=== PATIENT | male | born 1950 | race Caucasian/White ===

== ENCOUNTER → 2022-11-08 | Outpatient (CLI) | payer MEDICARE, OTHER, SELFPAY ==
--- NOTE | 2022-11-08 13:03 | RAD_ITS ---
STUDY: X-RAY CHEST REASON FOR EXAM: Male, 72 years old. Cough. TECHNIQUE: Frontal and lateral views of the chest on 3 images. COMPARISON: None. FINDINGS: Low volume to the lung nguyễn with diffuse mild interstitial prominence. Regions of hyperlucency within both lung nguyễn which may represent emphysematous changes. Marked elevation of the left hemidiaphragm with atelectasis. Patchy opacity at the right base above the right hemidiaphragm. There is no demonstrated pleural abnormality. Cardiomegaly. Normal mediastinum and lauro. Normal visualized pulmonary arteries. Aortic tortuosity with calcification. Diffuse thoracic spondylosis. Normal visualized ribs, clavicles, and shoulders. There is no demonstrated abnormality of the visualized soft tissue structures of the upper abdomen. RAD/Chest PA and Lateral IMPRESSION: Cardiomegaly with chronic changes to both lung nguyễn. No acute abnormality. Electronically Signed: Germán Jacinto, at 10:09 EDT ,
== END | disposition home or self-care (01) ==
LOC: MTRAD 12:51
PROVIDERS: PCP Family Medicine; Referring Provider Internal Medicine Pulmonary Disease; Visit Provider Internal Medicine Pulmonary Disease
DX: R05.9 Cough, unspecified (principal)
CPT/HCPCS: 71046

== ENCOUNTER → 2022-11-23 | Outpatient (CLI) | payer MEDICARE, OTHER, SELFPAY ==
--- NOTE | 2022-11-23 06:35 | CT_ITS ---
INDICATION: Cough, previous Covid hospitalization EXAMINATION: CT CHEST WITHOUT CONTRAST TECHNIQUE: Helically acquired images were obtained of the chest. Sagittal and coronal reconstructions reviewed. A radiation dose optimization technique was used for this scan. IV Contrast dosage and agent: None. COMPARISON: Two-view chest x-ray from 11/08/2022 FINDINGS: LUNGS, PLEURA AND LARGE AIRWAYS: Large hiatal hernia present with entire stomach, surrounding intraperitoneal fat and mid to distal pancreas projecting into lower left hemithorax above level of diaphragm. Adjacent left basilar scarring and atelectasis. There is also moderate scarring within left upper lobe and mild scarring scattered throughout right lung. No discrete pulmonary mass. No pneumothorax or pleural effusion. THYROID: Unremarkable as visualized. HEART AND PERICARDIUM: Normal size heart, slightly displaced anteriorly secondary to large hiatal hernia. Coronary arterial calcifications present. No significant pericardial effusion. VESSELS: Atherosclerosis with no thoracic aortic aneurysm. MEDIASTINUM AND [place]: Very large hiatal hernia again noted, see above. No mediastinal mass. No pathologically enlarged mediastinal or hilar lymph nodes. UPPER ABDOMEN: Very large hiatal hernia with stomach and portion of pancreas projecting into left lower hemithorax. Noninflamed periampullary duodenal diverticulum noted. There are few punctate calcifications within liver, likely benign. Scattered colonic diverticula. BONES: Skeletal degenerative changes with no acute osseous abnormality. CT/Chest without Contrast IMPRESSION: 1. Very large hiatal hernia projecting into left lower hemithorax containing entire stomach, portion of pancreas, and surrounding herniated intraperitoneal fat. 2. Bilateral lung scarring with no acute pulmonary airspace disease. 3. Other nonurgent findings within body of report. Electronically Signed: Vik Morrison MD at 4:12 EDT ,
== END | disposition home or self-care (01) ==
LOC: CT 06:33
PROVIDERS: PCP Family Medicine; Referring Provider Internal Medicine Pulmonary Disease; Visit Provider Internal Medicine Pulmonary Disease
DX: I51.7 Cardiomegaly (principal); R05.9 Cough, unspecified; R91.8 Other nonspecific abnormal finding of lung field
CPT/HCPCS: 71250

== ENCOUNTER → 2024-03-21 | Outpatient (CLI) | payer MEDICARE, OTHER, SELFPAY ==
--- NOTE | 2024-03-21 08:50 | VDLE_ITS ---
Reason For Study: HX LLE DVT RIGHT LEFT CFV is compressible, spontaneous, phasic, GSV is normal. competent and demonstrates normal CFV is PARTIALLY COMPRESSIBLE w/ hyperechoic augmentation. web-like intraluminal echoes. Flow appears Procedure spontaneous, phasic, competent and This is a venous duplex using B-mode, color demonstrates normal augmentation.Finding is flow and spectral Doppler. consistent w/ CHRONIC DVT. Exam performed in department. FV is PARTIALLY COMPRESSIBLE w/ hyperechoic The exam was diagnostic. web-like intraluminal echoes. Flow appears spontaneous, phasic, competent and demonstrates normal augmentation. Finding is consistent w/ CHRONIC DVT POP V is PARTIALLY COMPRESSIBLE w/ hyperechoic web-like intraluminal echoes. Finding is consistent w/ CHRONIC DVT. Flow is phasic, and INCOMPETENT for greater than 1.0 second. T/P Trunk is PARTIALLY COMPRESSIBLE w/ hyperechoic web-like intraluminal echoes. Finding is consistent w/ CHRONIC DVT. PTV is compressible. LT PerV is compressible. VL/Venous Duplex US, Unilateral Interpretation Summary Chronic venous changes are noted in the left common femoral vein, femoral vein, popliteal vein, and tibio-peroneal trunk. These deep veins demonstrate hyperechoic web-like echoes. The left posterior tibial vein and peroneal vein are patent and compressible. The left common femo ral vein and femoral vein are competent. The left popliteal vein is incompetent. These findings sugg est a prior episode of left lower extremity deep vein thrombosis. The left great saphenous vein dangelo ears patent and compressible segmentally. The right common femoral vein is patent and compressi ble . Ordering Physician: Larry Sutton V Referring Physician: Michael Ray Performed By: Rich Reyes, RVT
== END | disposition home or self-care (01) ==
LOC: CVS 08:49
PROVIDERS: PCP Family Medicine; Referring Provider Internal Medicine Pulmonary Disease; Visit Provider Internal Medicine Pulmonary Disease
DX: M79.662 Pain in left lower leg (principal); R06.02 Shortness of breath; Z86.718 Personal history of other venous thrombosis and embolism
CPT/HCPCS: 93971

== ENCOUNTER → 2024-03-29 | Outpatient (CLI) | payer MEDICARE, OTHER, SELFPAY ==
[2024-03-31 07:07] LABS: HOMOCYSTEINE 14.8 umol/L (0.0-19.2)
[2024-04-11 15:09] LABS: Antithrombin 3 Function 95 % (75-135); Dilute Prothrombin Time (dPT) 42.5 sec (0.0-47.6); Dilute Russell Viper Venom 49.3 sec (0.0-47.0); Dilute Russell Viper Venom Mix 40.7 sec (0.0-40.4); Interpretation Comment: (.); PTT-LA 35.4 sec (0.0-43.5); Protein C Antigen 87 % (60-150); Protein C, Functional 88 % (73-180); Protein S, Free 116 % (61-136); Protein S, Funtional 106 % (63-140); Protein S, Total 97 % (60-150); Thrombin Time 18.2 sec (0.0-23.0); dPT Confirm Ratio 1.15 Ratio (0.00-1.34)
== END | disposition home or self-care (01) ==
PROVIDERS: PCP Family Medicine; Referring Provider Internal Medicine Pulmonary Disease; Visit Provider Internal Medicine Pulmonary Disease
DX: I82.402 Acute embolism and thrombosis of unspecified deep veins of left lower extremity (principal)
CPT/HCPCS: 36415; 81240; 81241; 83090; 85300; 85302; 85303; 85305; 85306; 85379; 86147

== ENCOUNTER → 2024-06-27 | Outpatient (CLI) | payer MEDICARE, OTHER, SELFPAY ==
--- NOTE | 2024-06-27 12:56 | VDLE_ITS ---
Reason For Study: DVT Left leg RIGHT LEFT CFV is compressible, spontaneous, phasic, GSV is normal. competent and demonstrates normal CFV is PARTIALLY COMPRESSIBLE w/ hyperechoic augmentation. web-like intraluminal echoes. Flow appears Procedure spontaneous, phasic, competent and This is a venous duplex using B-mode, color demonstrates normal augmentation.Finding is flow and spectral Doppler. consistent w/ CHRONIC DVT. Exam performed in department. FV is PARTIALLY COMPRESSIBLE w/ hyperechoic Compared to 03/21/2024. web-like intraluminal echoes. Flow appears A preliminary report was called and/or spontaneous, phasic, competent and faxed to Margi JOLLEY @ PCP Dr. Ray's office. demonstrates normal augmentation. Finding is Dr. Sutton's office closed. consistent w/ CHRONIC DVT POP V is Partially NONCOMPRESSIBLE with mixed echogenoicity noted within, consistent with Acute on Chronic DVT. Flow is phasic, and INCOMPETENT for greater than 1.0 second. T/P Trunk is PARTIALLY COMPRESSIBLE w/ hyperechoic web-like intraluminal echoes. Finding is consistent w/ CHRONIC DVT. PTV is compressible. LT PerV is compressible. VL/Venous Duplex US, Unilateral Interpretation Summary Acute deep vein thrombosis is noted in the left popliteal vein, as well as cement loader cayla venous changes. The left popliteal vein is incompetent. Chronic venous changes are noted in the left common femoral vein and femoral vein, which are competent with spontaneous flow, but demonstra te partial compressibility and intraluminal echogenicity. Chronic venous changes are noted in the left tibio- peroneal trunk. The left posterior tibial vein and peroneal vein are patent and compressible. The left great saphenous vein appears patent and compressible segmentally. The righ t common femoral vein is patent and compressible . Ordering Physician: Larry Sutton V Referring Physician: Michael Ray Performed By: Brenda Nails RVT
== END | disposition home or self-care (01) ==
PROVIDERS: PCP Family Medicine; Referring Provider Internal Medicine Pulmonary Disease; Visit Provider Internal Medicine Pulmonary Disease
DX: I82.492 Acute embolism and thrombosis of other specified deep vein of left lower extremity (principal)
CPT/HCPCS: 93971